=== PATIENT | female | born 1955 | race Caucasian/White ===

== ENCOUNTER → 2017-07-19 | Outpatient (CLI) | payer BC ==
[~2017-07-19] MED LIST: ALBU90OI INH; ASPI325 PO; CHOL10002 PO; CYCL10 PO; FISH OIL 1,2001 EAC1 PO; FLUTICASONE-SA1 EAC1 INH; LISI20 PO; METO50 PO; Percocet 5-3251 EACH PO; VITAMIN D31000 UNIT PO; XARELTO10 MG PO; ZOLP5 PO
== END | disposition home or self-care (01) ==
LOC: PLD 15:08 → LAB SHORT 15:08
DX: D48.5 Neoplasm of uncertain behavior of skin (principal)
CPT/HCPCS: 88305

== ENCOUNTER → 2018-09-25 | Outpatient (CLI) | payer BC ==
[~2018-09-25] MED LIST changes: +FLUT1DIS5 INH; +Flomax0.4 MG PO; +HYDR1TAB94 PO; +KETO10 PO; +LEVO750 PO; +NIAC500 PO; +OMEGA 3-6-9 11200 MG PO; +SERT50 PO; +VANCO IV; +WIXELA 250-501 EACH INH
== END | disposition home or self-care (01) ==
LOC: LAB SHORT 12:15 → PLD 12:15
DX: C44.311 Basal cell carcinoma of skin of nose (principal); L57.0 Actinic keratosis
CPT/HCPCS: 88305

== ENCOUNTER 2018-10-26 03:25 | Emergency (ER) | payer BC ==
[~2018-10-26] VITALS: Ht 154.9 cm; Wt 84.8 kg
[~2018-10-26 03:25] MED LIST changes: -FLUT1DIS5 INH; -Flomax0.4 MG PO; -HYDR1TAB94 PO; -KETO10 PO; -LEVO750 PO; -NIAC500 PO; -OMEGA 3-6-9 11200 MG PO; -SERT50 PO; -VANCO IV; -WIXELA 250-501 EACH INH
[2018-10-26 04:13] LABS: BASOPHILS ABSOLUTE AUTO 0.01 K/mm3 (0.00-0.23); BASOPHILS PERCENT AUTO 0 % (0-2); EOSINOPHILS PERCENT AUTO 0 % (0-6); Hematocrit 38.7 % (33.0-51.0); IMMATURE GRAN ABSOLUTE AUTO 0.05 K/mm3 (0.00-0.10); IMMATURE GRAN PERCENT AUTO 1 % (0-1); LYMPHOCYTES ABSOLUTE AUTO 0.78 K/mm3 (0.84-5.20); LYMPHOCYTES PERCENT AUTO 9 % (21-46); MONOCYTES ABSOLUTE AUTO 0.25 K/mm3 (0.16-1.47); MONOCYTES PERCENT AUTO 3 % (4-13); Mean Corpuscular HGB 32.7 pg (26.0-34.0); Mean Corpuscular HGB Conc 33.6 g/dL (31.5-36.5); Mean Corpuscular Volume 98 fL (80-100); Mean Platelet Volume 8.6 fL (9.1-12.4); NEUTROPHILS ABSOLUTE AUTO 7.61 K/mm3 (1.96-9.15); NEUTROPHILS PERCENT AUTO 87 % (41-73); Platelet Count 154 K/mm3 (150-400); RDW Coefficient Variation 13.4 % (11.7-14.2); RDW Standard Deviation 47.8 fL (35.1-46.3); Red Blood Cell Count 3.97 M/mm3 (3.80-5.20)
[2018-10-26 04:35] LABS: Alanine Aminotransfer (ALT/SGP 23 U/L (12-78); Albumin, Blood 3.8 g/dL (3.4-5.0); Alk Phos 78 U/L (50-136); Anion Gap 5 mmol/L (6-16); Aspartate Aminotrans (AST/SGOT 17 U/L (12-37); Bilirubin, Total 0.6 mg/dL (0.1-1.0); Blood Urea Nitrogen 22 mg/dL (8-24); Bun/Creatinine Ratio 27.8 (12.0-20.0); CO2, Blood 27 mmol/L (21-32); Chloride, Blood 103 mmol/L (98-108); Creatinine, Blood 0.79 mg/dL (0.40-1.00); Globulin, Blood 3.9 g/dL (2.2-4.0); Glomerular Filtration Rate >60 (60-); Glucose, Blood 154 mg/dL (70-99); Potassium, Blood 3.7 mmol/L (3.5-5.5); Sodium, Blood 135 mmol/L (136-145); Total Protein, Blood 7.7 g/dL (6.4-8.2)
[2018-10-26] MEDS ORDERED: FLUT1DIS5 INH (05:14)
[2018-10-26] MEDS ORDERED: NIAC500 PO (05:15)
[2018-10-26] MEDS ORDERED: OMEGA 3-6-9 11200 MG PO (05:15)
[2018-10-26] MEDS ORDERED: SERT50 PO (05:16)
[2018-10-26 05:48] LABS: Source, Urine Clean Catch
[2018-10-26 05:51] LABS: Bilirubin, Urine Neg (Neg); Blood, Urine 4+ (Neg); Glucose Qualitative, Urine Neg (Neg); Ketones, Urine Neg (Neg); Leukocyte Esterase, Urine Neg (Neg); Nitrite, Urine Neg (Neg); Protein, Urine Neg (Neg); Specific Gravity, Urine 1.015 (1.003-1.022); Urobilinogen, Urine NORM (Normal)
[2018-10-26 05:52] LABS: Appearance, Urine Clear (Clear); Color, Urine Yellow (P-Yellow)
[2018-10-26 05:57] LABS: White Blood Cells, Urine Rare /hpf (0-5)
[2018-10-26 05:58] LABS: Bacteria Not Seen /hpf; Squamous Epithelial Cells Rare /hpf (Few)
[2018-10-26] MEDS ORDERED: Flomax0.4 MG PO (08:53)
[2018-10-26] MEDS ORDERED: KETO10 PO (08:53)
[2018-10-26] MEDS ORDERED: HYDR1TAB94 PO (08:53)
[2019-01-16] MEDS ORDERED: WIXELA 250-501 EACH INH (09:56)
[2019-01-16] MEDS ORDERED: ASPI325 PO (10:01)
== END 2018-10-26 09:31 | disposition home or self-care (01) ==
LOC: ER 03:25
PROVIDERS: Emergency Medicine
DX: N13.2 Hydronephrosis with renal and ureteral calculous obstruction (principal); Z88.0 Allergy status to penicillin; Z79.899 Other long term (current) drug therapy; Z79.891 Long term (current) use of opiate analgesic
CPT/HCPCS: 36415; 74176; 80053; 81001; 83690; 85025; 96361; 96374; 96375; 96376; 99284-25; J1170; J1885; J2405; J7120

== ENCOUNTER → 2018-12-10 | Outpatient (CLI) | payer BC ==
[~2018-12-10] MED LIST changes: +FLUT1DIS5 INH; +Flomax0.4 MG PO; +HYDR1TAB94 PO; +KETO10 PO; +LEVO750 PO; +NIAC500 PO; +OMEGA 3-6-9 11200 MG PO; +SERT50 PO; +VANCO IV; +WIXELA 250-501 EACH INH
== END | disposition home or self-care (01) ==
LOC: LAB 11:15 → LAB SHORT 11:15
DX: L08.0 Pyoderma (principal)
CPT/HCPCS: 87070; 87205

== ENCOUNTER → 2018-12-26 | Outpatient (CLI) | payer BC | END | disposition home or self-care (01) | LOC: LAB SHORT 10:39 → PLD 10:39 | DX: D48.5 Neoplasm of uncertain behavior of skin (principal) | CPT/HCPCS: 88305 ==

== ENCOUNTER 2019-01-16 13:27 | Inpatient (IN) | payer BC ==
[~2019-01-16] VITALS: Ht 154.9 cm; Wt 85.2 kg
[~2019-01-16 13:27] MED LIST changes: -LEVO750 PO; -VANCO IV
--- NOTE | 2019-01-17 11:59 | NUR ---
Ambulatory in Day Surgery. Surgical site prepped with 2% Chlorhexidine cloth wipe. History, Chart, Medications and Allergies reviewed before start of procedure. Surgical site prepped with 2% Chlorhexidine cloth wipe. Patient confirms NPO status and agrees with scheduled surgery. Pre-Op teaching done. Pt verbalizes understanding. Patient reports completing Chlorhexadine shower X2 prior to admission to hospital.
--- NOTE | 2019-01-17 16:57 | NUR ---
SITTING UP IN BED, TAKING SNACK AND PO FLUIDS W/O C/O. TALKING WITH VISITORS. VSS. DENIES PAIN. MOVING LEGS. CONT TO MONITOR.
--- NOTE | 2019-01-17 18:55 | NUR ---
SHIFT SUMMARY PATIENT STATES NUMBNESS TO BOTTOM OF L FOOT AND BACK OF L LEG. MOVES WELL. AMBULATED TO BR, VOIDED. TOOK DINNER W/O C/O. RATES PAIN 06/16. OXY 5MG ADMIN. CN INFORMED OF ORDER FOR PICC LINE. REPORT TO CHANEL GARCIA.
[2019-01-18 04:19] LABS: BASOPHILS ABSOLUTE AUTO 0.01 K/mm3 (0.00-0.23); BASOPHILS PERCENT AUTO 0 % (0-2); EOSINOPHILS PERCENT AUTO 0 % (0-6); Hematocrit 33.2 % (33.0-51.0); Hemoglobin 10.6 g/dL (11.5-16.0); IMMATURE GRAN ABSOLUTE AUTO 0.01 K/mm3 (0.00-0.10); IMMATURE GRAN PERCENT AUTO 0 % (0-1); LYMPHOCYTES ABSOLUTE AUTO 1.18 K/mm3 (0.84-5.20); LYMPHOCYTES PERCENT AUTO 21 % (21-46); MONOCYTES PERCENT AUTO 4 % (4-13); Mean Corpuscular HGB 32.2 pg (26.0-34.0); Mean Corpuscular HGB Conc 31.9 g/dL (31.5-36.5); Mean Corpuscular Volume 101 fL (80-100); NEUTROPHILS ABSOLUTE AUTO 4.16 K/mm3 (1.96-9.15); NEUTROPHILS PERCENT AUTO 75 % (41-73); Platelet Count 152 K/mm3 (150-400); RDW Standard Deviation 48.7 fL (35.1-46.3); Red Blood Cell Count 3.29 M/mm3 (3.80-5.20); White Blood Cell Count 5.56 K/mm3 (4.00-11.30)
[2019-01-18 04:33] LABS: Anion Gap 6 mmol/L (6-16); Blood Urea Nitrogen 19 mg/dL (8-24); Bun/Creatinine Ratio 28.9 (12.0-20.0); CO2, Blood 24 mmol/L (21-32); Chloride, Blood 108 mmol/L (98-108); Creatinine, Blood 0.66 mg/dL (0.40-1.00); Glomerular Filtration Rate >60 (60-); Glucose, Blood 111 mg/dL (70-99); Magnesium, Blood 2.1 mg/dL (1.6-2.4); Potassium, Blood 4.3 mmol/L (3.5-5.5); Sodium, Blood 138 mmol/L (136-145)
--- NOTE | 2019-01-18 06:45 | NUR ---
SHIFT SUMMARY LYING IN SEMI FOWLERS. ABLE TO REPOSITION SELF IN BED. AMBULATED IN HALLWAY SEVERAL TIMES THIS SHIFT. MEDICATED FOR PAIN X1 THIS SHIFT. DENIES FURTHER NEEDS AT THIS TIME. SAFETY MEASURES IN PLACE. WILL GIVE HAND OFF TO ONCOMING SHIFT USING SBAR.
--- NOTE | 2019-01-18 18:21 | NUR ---
SHIFT SUMMARY PT EATING AND DRINKING. PT BEEN ASSISTED WITH ADL'S PRN. PT AMBULATING IN HALLWAY WITH WALKER. PT BEEN MED FOR PAIN PRN. FAMILY IN/OUT OF ROOM. PT VOIDING AND REPORTS HAVING SMALL BM TODAY.
--- NOTE | 2019-01-18 18:45 | NUR ---
PT HAD PICC LINE PLACED TO DANIEL EARLIER TODAY APROX 16:40 PER PT BY VENDOR MANAGER. VENDOR MANAGER REPORTED THAT IT WAS READY TO USE.
--- NOTE | 2019-01-19 06:02 | NUR ---
SHIFT SUMMARY: COURTNEY IS POD 2. SHE HAD A LEFT KNEE I&D/REVISION. SHE DENIES ANY N/V. SHE HAS COMPLAINED OF MUSCLE SPASMS THIS SHIFT FOR WHICH CYCLOBENZAPRINE WAS HELPFUL. SHE IS INDEPENDENT IN HER ROOM AND THE HALLS WITH A FWW. SHE HAS DONTE HOSE IN PLACE, USING THE POLAR PACK WHEN AT REST. SHE IS ABLE TO MAKE HER NEEDS KNOWN. HER CALL LIGHT IS IN REACH. VSS. SHE REPORTS THE HISTORY OF KIDNEY STONES AND MULTIPLE SKIN CANCER REMOVALS.
--- NOTE | 2019-01-19 10:45 | NUR ---
DR ALICEA BEEN TO SEE PT EARLIER TODAY, WRAPPED L KNEE WITH RAHEEM WRAP.
--- NOTE | 2019-01-19 16:58 | NUR ---
SHIFT SUMMARY PT EATING AND DRINKING. PT VOIDING. PT WORKED WITH THERAPY. FAMILY IN TO SEE PT TODAY. PT BEEN ASSISTED WITH ADL'S PRN. PT BEEN MED FOR PAIN PRN. PT BEEN UP TO CHAIR MOST OF DAY.
--- NOTE | 2019-01-20 04:59 | NUR ---
PATIENT SLEPT WELL LAST NIGHT. PAIN MEDICATIONS WERE SUFFICIENT FOR PAIN CONTROL. UP WALKING WITH STAFF TWO TIMES, NO DIZZINESS, NO WEAKNESS. NO ACUTE CHANGES.
[2019-01-20] MEDS ORDERED: VANCO IV (08:49)
--- NOTE | 2019-01-20 13:11 | NUR ---
DR YU HERE TO SEE PT.
--- NOTE | 2019-01-20 17:39 | NUR ---
BREANA (PA) HERE TO SEE PT, AWARE OF PT NOT ABLE TO BE DISCHARGED TODAY.
--- NOTE | 2019-01-20 19:58 | NUR ---
SHIFT SUMMARY PT EATING AND DRINKING. PT VOIDING AND PASSING GAS. PT BEEN ASSISTED WITH ADL'S PRN. PT BEEN GIVEN PRUNE JUICE COCKTAIL EARLIER TODAY. PT BEEN MED PRN PAIN. BREANA (BELA) AND DR YU HERE TO SEE PT TODAY. BENEFITS ANALYST ASSISTING WITH DISCHARGE PLANNING, PT WAS NOT ABLE TO DISCHARGE TODAY AND BREANA IS AWARE.
--- NOTE | 2019-01-21 05:15 | NUR ---
SUMMARY: POD [address] LEFT TK REVISION BY DR. ALICEA. VSS, AFEBRILE, PT ON ROOM AIR. TOLERATING PO INTAKE WELL AND VOIDING CLEAR, YELLOW URINE. PT UP WITH 1 SBA FOR BRP, CHAIR AND AMBULATES ROSE 75 FEET. SMALL BRUISE LATERAL KNEE AND DRESSING REMAINS C/D/I WITH RAHEEM. PICC LINE PATENT, CONTINUE IV ANTIBIOTIC THERAPY AND IV VANCOMYCIN TROUGH TO THERAPUETIC LEVELS PER DR. YU CONSULT COMPLETED YESTERDAY. ANTICIPATE PT/OT THIS DAY.
[2019-01-21 12:12] LABS: Creatinine, Blood 0.57 mg/dL (0.40-1.00)
--- NOTE | 2019-01-21 17:01 | NUR ---
SHIFT SUMMARY HOME HEALTH RN INTO SEE PT TODAY. WORKING ON PLANS TO D/C ON HOME HEALTH FOR THERAPY AND IV ABX INFUSIONS AT HOME. PAIN WELL CONTROLLED. PT HAS GONE FROM CONSIPATION TO LOOSE BMS. HAD ONE EPISODE OF FEELING DIZZY, NAUSEATED WITH EMESIS, AND FLUSHED/REDDENED FACE BUT RESOLVED. HAS SAT UP IN CHAIR FOR THIS SHIFT. TOLERATING DIET WELL.
--- NOTE | 2019-01-22 03:14 | NUR ---
Patient A/O x4. VSS. No complaints of pain. Picc line to L upper arm flushes but no blood return. Ambulating independently with FWW. voiding freely. Patient complained of diarrhea, stool softeners held. Dressing to L knee D/C/I. Medicated as ordered. Resting comfortably.
--- NOTE | 2019-01-22 10:43 | NUR ---
AM NOTE PT DRESSED AND UP CHAIR. IND IN ROOM. DENIES ANY CONCERNS THIS MORNING. STATES PAIN IS WELL CONTROLLED WITH PO MEDICATIONS. EAGER TO GO HOME. CURRENTLY SITTING IN CHAIR TALKING WITH VISITOR.
[2019-01-22] MEDS ORDERED: LEVO750 PO (13:01)
--- NOTE | 2019-01-22 13:53 | NUR ---
DISCHARGE SUMMARY PT DISCHARGED HOME W/SO AT 1340 TODAY. DISCHARGE INSTRUCTIONS AND PERSONAL BELONGINGS GIVEN TO PT. SCRIPT CALLED INTO PHARMACY OF CHOICE AND HOME HEALTH SET UP PRIOR TO D/C. PICC LINE EDUCATION PROVIDED BY HOME HEALTH NURSE THIS MORNING. PT AMBULATES IND IN ROOM. PAIN MANAGED AT TOLERABLE LEVEL W/PO MEDICATION AND THERAPY. REPORTS VOIDING, STOOLING, AND TOLERATING PO INTAKE WELL. VERBALIZED UNDERSTANDING OF DISCHARGE AND DENIED ANY FURTHER CONCERNS.
== END 2019-01-22 13:55 | disposition home health service (06) | DRG 463 ==
LOC: PRE IP 01-17 11:08 → SURS 01-17 11:08 → PRE IP 01-17 12:30 → SURS 01-17 15:38
PROVIDERS: Pharmacist; ADMIT Orthopaedic Surgery
PROC: 0SBD0ZZ Excision of Left Knee Joint, Open Approach (ICD-10-PCS; 2019-01-17)
PROC: 0S9D0ZX Drainage of Left Knee Joint, Open Approach, Diagnostic (ICD-10-PCS; 2019-01-17)
PROC: 02HV33Z Insertion of Infusion Device into Superior Vena Cava, Percutaneous Approach (ICD-10-PCS; 2019-01-17)
PROC: 0SUD09C Supplement Left Knee Joint with Liner, Patellar Surface, Open Approach (ICD-10-PCS; principal; 2019-01-17 12:30)
PROC: 0SPD09Z Removal of Liner from Left Knee Joint, Open Approach (ICD-10-PCS; 2019-01-17 12:30)
DX: T84.54XA Infection and inflammatory reaction due to internal left knee prosthesis, initial encounter (principal); A41.9 Sepsis, unspecified organism; I10 Essential (primary) hypertension; Z86.73 Personal history of transient ischemic attack (TIA), and cerebral infarction without residual deficits; F41.9 Anxiety disorder, unspecified
CPT/HCPCS: 36415; 36569; 73560-LT; 80048; 80202; 82565; 83735; 85025; 86850; 86900; 86901; 87070; 87071; 87075; 87205; 88304; 93005; 93010; 97110; 97116; 97161; 97530; C1751; C1776; J0171; J0735; J1100; J1885; J1956; J2250; J2405; J2704; J2765; J2795; J2997; J3010; J3370; J7050; J7120

== ENCOUNTER → 2019-01-26 | Outpatient (CLI) | payer BC ==
[~2019-01-26] MED LIST changes: +LEVO750 PO; +VANCO IV
== END | disposition home or self-care (01) ==
LOC: LAB HH 10:00
PROVIDERS: Family Medicine
DX: T84.54XA Infection and inflammatory reaction due to internal left knee prosthesis, initial encounter (principal)
CPT/HCPCS: 80202

== ENCOUNTER → 2019-01-30 | Outpatient (CLI) | payer BC | END | disposition home or self-care (01) | LOC: LAB 09:30 → LAB SHORT 09:30 | PROVIDERS: Internal Medicine Infectious Disease | DX: T84.54XA Infection and inflammatory reaction due to internal left knee prosthesis, initial encounter (principal) | CPT/HCPCS: 80202 ==

== ENCOUNTER → 2019-02-08 | Outpatient (CLI) | payer BC ==
[2019-02-08 12:11] LABS: Alanine Aminotransfer (ALT/SGP 13 U/L (12-78); Albumin, Blood 3.2 g/dL (3.4-5.0); Albumin/Globulin Ratio 0.9 (0.8-1.8); Alk Phos 78 U/L (50-136); Anion Gap 6 mmol/L (6-16); Aspartate Aminotrans (AST/SGOT 10 U/L (12-37); Bilirubin, Total 0.4 mg/dL (0.1-1.0); Blood Urea Nitrogen 17 mg/dL (8-24); Bun/Creatinine Ratio 28.4 (12.0-20.0); CO2, Blood 25 mmol/L (21-32); Calcium, Blood 8.9 mg/dL (8.5-10.1); Chloride, Blood 107 mmol/L (98-108); Globulin, Blood 3.5 g/dL (2.2-4.0); Glomerular Filtration Rate >60 (60-); Glucose, Blood 93 mg/dL (70-99); Potassium, Blood 3.7 mmol/L (3.5-5.5); Sodium, Blood 138 mmol/L (136-145); Total Protein, Blood 6.7 g/dL (6.4-8.2)
[2019-02-08 12:26] LABS: Vancomycin, Trough 22.5 ug/mL (5.0-10.0)
== END ==
LOC: LAB 10:10 → LAB SHORT 10:10
PROVIDERS: Family Medicine
DX: T84.54XA Infection and inflammatory reaction due to internal left knee prosthesis, initial encounter (principal)
CPT/HCPCS: 80053; 80202; 86140

== ENCOUNTER → 2019-02-19 | Outpatient (CLI) | payer BC ==
[2019-02-19 15:17] LABS: BASOPHILS ABSOLUTE AUTO 0.01 K/mm3 (0.00-0.23); BASOPHILS PERCENT AUTO 1 % (0-2); EOSINOPHILS ABSOLUTE AUTO 0.07 K/mm3 (0.00-0.68); EOSINOPHILS PERCENT AUTO 4 % (0-6); Hematocrit 35.6 % (33.0-51.0); Hemoglobin 11.6 g/dL (11.5-16.0); IMMATURE GRAN ABSOLUTE AUTO 0.01 K/mm3 (0.00-0.10); IMMATURE GRAN PERCENT AUTO 1 % (0-1); LYMPHOCYTES ABSOLUTE AUTO 0.77 K/mm3 (0.84-5.20); LYMPHOCYTES PERCENT AUTO 44 % (21-46); MONOCYTES ABSOLUTE AUTO 0.23 K/mm3 (0.16-1.47); MONOCYTES PERCENT AUTO 13 % (4-13); Mean Corpuscular HGB Conc 32.6 g/dL (31.5-36.5); Mean Corpuscular Volume 101 fL (80-100); Mean Platelet Volume 9.6 fL (9.1-12.4); NEUTROPHILS ABSOLUTE AUTO 0.67 K/mm3 (1.96-9.15); NEUTROPHILS PERCENT AUTO 38 % (41-73); Platelet Count 180 K/mm3 (150-400); RDW Coefficient Variation 12.9 % (11.7-14.2); RDW Standard Deviation 47.7 fL (35.1-46.3); Red Blood Cell Count 3.52 M/mm3 (3.80-5.20); White Blood Cell Count 1.76 K/mm3 (4.00-11.30)
[2019-02-19 15:20] LABS: Alanine Aminotransfer (ALT/SGP 20 U/L (12-78); Albumin, Blood 3.7 g/dL (3.4-5.0); Alk Phos 92 U/L (50-136); Anion Gap 6 mmol/L (6-16); Aspartate Aminotrans (AST/SGOT 16 U/L (12-37); Bilirubin, Total 0.4 mg/dL (0.1-1.0); Blood Urea Nitrogen 14 mg/dL (8-24); Bun/Creatinine Ratio 18.7 (12.0-20.0); CO2, Blood 25 mmol/L (21-32); Calcium, Blood 9.2 mg/dL (8.5-10.1); Chloride, Blood 109 mmol/L (98-108); Creatinine, Blood 0.75 mg/dL (0.40-1.00); Globulin, Blood 3.7 g/dL (2.2-4.0); Glomerular Filtration Rate >60 (60-); Glucose, Blood 92 mg/dL (70-99); Sodium, Blood 140 mmol/L (136-145); Total Protein, Blood 7.4 g/dL (6.4-8.2); Vancomycin, Trough 18.9 ug/mL (5.0-10.0)
== END | disposition home or self-care (01) ==
LOC: LAB SHORT 14:51 → LAB 14:51
PROVIDERS: Family Medicine
DX: T84.54XA Infection and inflammatory reaction due to internal left knee prosthesis, initial encounter (principal)
CPT/HCPCS: 80053; 80202; 85025; 85651; 86140

== ENCOUNTER → 2019-02-24 | Outpatient (CLI) | payer BC ==
[2019-02-24 13:53] LABS: Vancomycin, Trough 9.1 ug/mL (5.0-10.0)
== END | disposition home or self-care (01) ==
LOC: LAB SHORT 09:55 → LAB 09:55
PROVIDERS: Family Medicine
DX: T84.54XA Infection and inflammatory reaction due to internal left knee prosthesis, initial encounter (principal); Z79.2 Long term (current) use of antibiotics
CPT/HCPCS: 80202

== ENCOUNTER → 2020-02-18 | Outpatient (CLI) | payer MEDICARE | END | disposition home or self-care (01) | LOC: PLD 16:00 → LAB SHORT 16:00 | DX: D48.5 Neoplasm of uncertain behavior of skin (principal) | CPT/HCPCS: 88305 ==

== ENCOUNTER → 2020-03-30 | Outpatient (CLI) | payer MEDICARE | LOC: PLD 13:53 → LAB SHORT 13:53 | DX: C44.619 Basal cell carcinoma of skin of left upper limb, including shoulder (principal); L57.0 Actinic keratosis | CPT/HCPCS: 88305 ==

== ENCOUNTER → 2020-06-17 | Outpatient (CLI) | payer MEDICARE | END | disposition home or self-care (01) | LOC: PLD 16:01 → LAB SHORT 16:01 | DX: C44.622 Squamous cell carcinoma of skin of right upper limb, including shoulder (principal); D48.5 Neoplasm of uncertain behavior of skin | CPT/HCPCS: 88305 ==

== ENCOUNTER → 2020-09-29 | Outpatient (CLI) | payer MEDICARE | END | disposition home or self-care (01) | LOC: LAB SHORT 12:16 | DX: C44.519 Basal cell carcinoma of skin of other part of trunk (principal) | CPT/HCPCS: 88305 ==

== ENCOUNTER → 2020-10-27 | Outpatient (CLI) | payer MEDICARE | END | disposition home or self-care (01) | LOC: LAB 11:14 → LAB SHORT 11:14 | DX: L82.1 Other seborrheic keratosis (principal); D48.5 Neoplasm of uncertain behavior of skin | CPT/HCPCS: 88305 ==

== ENCOUNTER → 2020-11-02 | Outpatient (CLI) | payer MEDICARE | END | disposition home or self-care (01) | LOC: LAB SHORT 08:52 | DX: C44.329 Squamous cell carcinoma of skin of other parts of face (principal) | CPT/HCPCS: 88305 ==

== ENCOUNTER → 2021-06-01 | Outpatient (CLI) | payer MEDICARE | END | disposition home or self-care (01) | LOC: PLD 15:17 → LAB SHORT 15:17 | DX: L82.0 Inflamed seborrheic keratosis (principal) | CPT/HCPCS: 88305 ==

== ENCOUNTER → 2021-10-11 | Outpatient (CLI) | payer MEDICARE | END | disposition home or self-care (01) | LOC: PLD 15:47 → LAB SHORT 15:47 | DX: D48.5 Neoplasm of uncertain behavior of skin (principal) | CPT/HCPCS: 88305 ==

== ENCOUNTER → 2023-02-20 | Outpatient (CLI) | payer MEDICARE | END | disposition home or self-care (01) | LOC: LAB SHORT 11:30 → PLD 11:30 | DX: L28.0 Lichen simplex chronicus (principal) | CPT/HCPCS: 88305; 88312 ==